=== PATIENT | female | born 1950 | race Caucasian/White ===

== ENCOUNTER → 2023-09-27 07:26 | Outpatient (REF) | payer MEDICARE, OTHER, SELFPAY ==
[2023-09-27 09:55] LABS: % Basophils 1.6 % (0-2); % Eosinophils 3.3 % (0-6); % Monocytes 9.5 % (1.7-9.3); % Neutrophils 44.6 % (42.2-75.2); Absolute Basophils 0.1 10^3/uL (0-0.2); Absolute Eosinophils 0.2 10^3/uL (0-0.7); Absolute Lymphocytes 1.9 10^3/uL (1.2-3.4); Absolute Monocytes 0.4 10^3/uL (0.1-0.6); Hematocrit 39.6 % (37.0-47.0); Hemoglobin 13.4 g/dL (12.0-16.0); Mean Corp Hgb Conc. 33.8 g/dL (33.0-37.0); Mean Corpuscular Hgb 30.2 pg (27.0-31.0); Mean Corpuscular Volume 89.4 fL (81.0-99.0); Nucleated Red Blood Cells % 0 %; Platelet Count 342 10^3/uL (130-400); Red Blood Cell Count 4.43 10^6/uL (4.20-5.40); Reticulocyte Count 1.4 % (0.4-2.8); White Blood Cell Count 4.5 10^3/uL (4.8-10.8)
[2023-09-27 10:14] LABS: Blood Urea Nitrogen 10 mg/dl (7-17); Calcium 9.8 mg/dl (8.4-10.2); Carbon Dioxide 27 mmol/L (22-30); Chloride 99 mmol/L (98-107); Glucose 90 mg/dl (70-99); Potassium 4.1 mmol/L (3.5-5.1); Sodium 132 mmol/L (135-145); eGFR > 60.00
[2023-09-27 10:30] LABS: Vitamin D, 25-OH*** 63.1 ng/mL (30-80)
== END ==
LOC: HWLAB 07:26
PROVIDERS: ATTENDING PHYSICIAN Nurse Practitioner Family
DX: D72.819 Decreased white blood cell count, unspecified (principal); E87.1 Hypo-osmolality and hyponatremia; M81.0 Age-related osteoporosis without current pathological fracture
CPT/HCPCS: 36415; 80048; 82306; 85025; 85045

== ENCOUNTER → 2023-10-29 08:46 | Outpatient (REF) | payer MEDICARE, OTHER, SELFPAY ==
[2023-10-29 11:45] LABS: Osmolality Urine 309 mOsm/kg (300-900)
[2023-10-29 14:43] LABS: Urine Sodium 31 mmol/L (30-90)
== END ==
LOC: HWLAB 08:46
PROVIDERS: ATTENDING PHYSICIAN Nurse Practitioner Family
DX: E87.1 Hypo-osmolality and hyponatremia (principal)
CPT/HCPCS: 83935; 84300